=== PATIENT | female | born 1930 | race Caucasian/White ===

== ENCOUNTER 2016-12-11 17:37 | Inpatient (IN) | payer OTHER, MEDICARE ==
[~2016-12-11] VITALS: Ht 157.5 cm; Wt 42.4 kg
[~2016-12-11 17:37] MED LIST: ALBUTEROL SULF8.5 GM IH; CLONIDINE HCL0.1 MG PO; COLACE100 MG PO; Cipro PO; Habitrol,Nicoderm CQ TD; LEVAQUIN500 MG PO; PANTOPRAZOLE SO40 MG PO; PREDNISONE10 MG PO; Protonix PO; SPIRIVA1 INHALATI IH; ZITHROMAX Z-PA250 MG PO
[2016-12-11 18:24] LABS: HEMATOCRIT 43.1 % (36.0-46.0); MCH 29.7 PG (29.0-34.0); MCHC 34.1 G/DL (30.0-36.0); MCV 87.1 FL (83-99); MEAN PLAT.VOLUME 8.7 uM^3 (9.5-12.4); PLATELET COUNT 337 K/uL (156-360); RBC DIS.WIDTH-CV 12.7 % (11.8-14.6); RBC DIS.WIDTH-SD 40.3 % (39-53); RED BLOOD COUNT 4.95 M/uL (3.80-5.20); WHITE BLOOD COUNT 6.6 K/uL (4.1-10.2)
[2016-12-11 18:35] LABS: CHLORIDE 90 mEq/L (99-109); POTASSIUM 3.3 mEq/L (3.7-5.4); SODIUM 128 mEq/L (136-147)
[2016-12-11 18:37] LABS: GLUCOSE 108 mg/dL (70-99)
[2016-12-11 18:38] LABS: ANION GAP 15 MEQ/L (2-14)
[2016-12-11 18:41] LABS: GFR ESTIMATE (CALCULATED) > 59 mL/min/
[2016-12-11 18:42] LABS: UREA NITROGEN (BUN) 10 mg/dL (9-23)
[2016-12-11 18:46] LABS: TROP-I INTERPRETATION NEGATIVE; TROPONIN-I < 0.01 ng/mL (0.0-0.30)
[2016-12-11] MEDS ORDERED: SPIRIVA1 INHALATI IH (20:55)
[2016-12-11] MEDS ORDERED: PROTONIX40 MG PO (20:59)
[2016-12-11] MEDS ORDERED: PAXIL10 MG PO (20:59)
[2016-12-11] MEDS ORDERED: LASIX20 MG PO (21:00)
[2016-12-11 21:20] LABS: ADD MIUA? YES; BILIRUBIN NEGATIVE; BLOOD SMALL; COLOR STRAW ((YELLOW)); GLUCOSE (STRIP) NEGATIVE; KETONES 5; LEUKOCYTES NEGATIVE; NITRITE NEGATIVE; PROTEIN (STRIP) NEGATIVE; SPECIFIC GRAVITY 1.003 (1.000-1.030); UROBILINOGEN 0.2 MG/DL (0.2-1.0)
[2016-12-11 21:25] LABS: BACTERIA NONE SEEN /HPF; EPITHELIAL CELLS RARE /HPF; MUCUS NONE SEEN /LPF; RED BLOOD CELLS 0-5 /HPF (0-5); UCUL ADDED? NO; WHITE BLOOD CELLS 0-5 /HPF (0-5)
[2016-12-12] VITALS (9 sets, daily range): BP systolic 138–197; BP diastolic 82–109
[2016-12-12 02:02] LABS: TROP-I INTERPRETATION NEGATIVE; TROPONIN-I < 0.01 ng/mL (0.0-0.30)
[2016-12-12 07:16] LABS: HEMATOCRIT 41.8 % (36.0-46.0); MCH 28.9 PG (29.0-34.0); MCHC 33.5 G/DL (30.0-36.0); MCV 86.2 FL (83-99); MEAN PLAT.VOLUME 8.6 uM^3 (9.5-12.4); PLATELET COUNT 313 K/uL (156-360); RBC DIS.WIDTH-CV 12.7 % (11.8-14.6); RBC DIS.WIDTH-SD 39.9 % (39-53); RED BLOOD COUNT 4.85 M/uL (3.80-5.20)
[2016-12-12 07:19] LABS: WHITE BLOOD COUNT 4.1 K/uL (4.1-10.2)
[2016-12-12 07:38] LABS: ALKALINE PHOSPHATASE 135 IU/L (3-129); ANION GAP 9 MEQ/L (2-14); CHLORIDE 95 MEQ/L (99-109); GFR ESTIMATE (CALCULATED) > 59 mL/min/; GLUCOSE 123 mg/dL (70-99); SAMPLE HEMOLYSIS CHECK 0; SAMPLE ICTERIC CHECK 0; SAMPLE LIPEMIA CHECK 0; SODIUM 129 MEQ/L (136-147); TOTAL BILIRUBIN 0.6 MG/DL (0.0-1.0); UREA NITROGEN (BUN) 8 mg/dL (9-23)
[2016-12-12 07:43] LABS: TROP-I INTERPRETATION NEGATIVE; TROPONIN-I 0.02 ng/mL (0.0-0.30)
[2016-12-13] VITALS (8 sets, daily range): BP systolic 136–178; BP diastolic 74–96
[2016-12-14 03:25] VITALS: BP 132/78
[2016-12-14 07:26] VITALS: BP 160/82
[2016-12-14 07:26] LABS: HEMATOCRIT 39.4 % (36.0-46.0); MCH 28.8 PG (29.0-34.0); MCV 87.4 FL (83-99); MEAN PLAT.VOLUME 9.3 uM^3 (9.5-12.4); PLATELET COUNT 318 K/uL (156-360); RBC DIS.WIDTH-SD 41.9 % (39-53); RED BLOOD COUNT 4.51 M/uL (3.80-5.20)
[2016-12-14 07:27] LABS: WHITE BLOOD COUNT 9.5 K/uL (4.1-10.2)
[2016-12-14 07:40] LABS: ANION GAP 9 MEQ/L (2-14); CHLORIDE 95 MEQ/L (99-109); GFR ESTIMATE (CALCULATED) > 59 mL/min/; GLUCOSE 101 mg/dL (70-99); SAMPLE HEMOLYSIS CHECK 0; SAMPLE ICTERIC CHECK 0; SAMPLE LIPEMIA CHECK 0; SODIUM 129 MEQ/L (136-147); UREA NITROGEN (BUN) 17 mg/dL (9-23)
[2016-12-14 11:11] VITALS: BP 113/58
[2016-12-14] MEDS ORDERED: PREDNISONE10 M1 PO (16:04)
[2016-12-14] MEDS ORDERED: FUROSEMIDE20 MG PO (16:04)
[2016-12-14 16:18] VITALS: BP 130/77
[2016-12-14 19:36] VITALS: BP 140/80
[2016-12-14 23:31] VITALS: BP 157/80
[2016-12-15 03:54] VITALS: BP 151/82
[2016-12-15 07:00] VITALS: BP 167/85
[2016-12-15 08:44] LABS: ANION GAP 10 MEQ/L (2-14); CHLORIDE 95 MEQ/L (99-109); GFR ESTIMATE (CALCULATED) > 59 mL/min/; GLUCOSE 102 mg/dL (70-99); POTASSIUM 3.9 MEQ/L (3.7-5.4); SAMPLE HEMOLYSIS CHECK 0; SAMPLE ICTERIC CHECK 0; SAMPLE LIPEMIA CHECK 0; SODIUM 132 MEQ/L (136-147); UREA NITROGEN (BUN) 17 mg/dL (9-23)
[2016-12-15 12:13] VITALS: BP 143/78
== END 2016-12-15 16:01 | DRG 191 ==
LOC: EME → EDBD 17:37 → EDOF 21:43 → 2EAST 21:43
PROVIDERS: Emergency Medicine; Hospitalist; Internal Medicine
DX: J44.1 Chronic obstructive pulmonary disease with (acute) exacerbation (principal); E87.1 Hypo-osmolality and hyponatremia; I16.0 Hypertensive urgency; I10 Essential (primary) hypertension; R33.9 Retention of urine, unspecified; R31.9 Hematuria, unspecified; R64 Cachexia; Z68.1 Body mass index [BMI] 19.9 or less, adult; R26.2 Difficulty in walking, not elsewhere classified; R10.84 Generalized abdominal pain; K59.00 Constipation, unspecified; H91.93 Unspecified hearing loss, bilateral; Z86.73 Personal history of transient ischemic attack (TIA), and cerebral infarction without residual deficits; Z87.440 Personal history of urinary (tract) infections; Z85.038 Personal history of other malignant neoplasm of large intestine; Z87.891 Personal history of nicotine dependence; Z60.2 Problems related to living alone; Z63.4 Disappearance and death of family member
CPT/HCPCS: 71020; 74176; 80048; 80053; 81003; 82436; 82533 91; 83605; 83930; 83935; 84133; 84300; 84439; 84443; 84484; 85027; 93005; 94640; 94640 76; 94799; 97530 GP; 99202; 99281; 99285; J0360; J1956; J2920; J7030; J7512

== ENCOUNTER 2017-02-19 20:17 | Inpatient (IN) | payer OTHER, MEDICARE ==
[~2017-02-19] VITALS: Ht 157.5 cm; Wt 40.8 kg
[~2017-02-19 20:17] MED LIST changes: +FUROSEMIDE20 MG PO; +LASIX20 MG PO; +PAXIL10 MG PO; +PREDNISONE10 M1 PO; +PROTONIX40 MG PO
[2017-02-19 21:57] LABS: HEMATOCRIT 36.9 % (36.0-46.0); MCH 30.5 PG (29.0-34.0); MCHC 33.9 G/DL (30.0-36.0); MEAN PLAT.VOLUME 9.4 uM^3 (9.5-12.4); PLATELET COUNT 232 K/uL (156-360); RBC DIS.WIDTH-CV 13.7 % (11.8-14.6); WHITE BLOOD COUNT 5.6 K/uL (4.1-10.2)
[2017-02-19 22:08] LABS: CHLORIDE 92 mEq/L (99-109); POTASSIUM 3.5 mEq/L (3.7-5.4); SODIUM 130 mEq/L (136-147)
[2017-02-19 22:10] LABS: GLUCOSE 102 mg/dL (70-99)
[2017-02-19 22:11] LABS: ANION GAP 9 MEQ/L (2-14)
[2017-02-19 22:12] LABS: TOTAL BILIRUBIN 0.6 mg/dL (0.0-1.0)
[2017-02-19 22:13] LABS: ALKALINE PHOSPHATASE 121 IU/L (3-129)
[2017-02-19 22:14] LABS: GFR ESTIMATE (CALCULATED) > 59 mL/min/
[2017-02-19 22:15] LABS: UREA NITROGEN (BUN) 9 mg/dL (9-23)
[2017-02-19 22:17] LABS: LIPASE 270 U/L (1.0-51.0)
[2017-02-19 23:09] LABS: CREATINE KINASE 38 IU/L (1-294)
[2017-02-20 00:02] LABS: ADD MIUA? YES; BILIRUBIN NEGATIVE; BLOOD SMALL; COLOR YELLOW ((YELLOW)); GLUCOSE (STRIP) NEGATIVE; KETONES NEGATIVE; LEUKOCYTES NEGATIVE; NITRITE NEGATIVE; PROTEIN (STRIP) NEGATIVE; SPECIFIC GRAVITY 1.011 (1.000-1.030); UROBILINOGEN 0.2 MG/DL (0.2-1.0)
[2017-02-20 00:46] LABS: AMORPHOUS PHOSPHATE CRYSTALS 3+; CASTS NONE SEEN /LPF; CRYSTALS PRESENT; EPITHELIAL CELLS 1+ /HPF; MUCUS NONE SEEN /LPF
[2017-02-20 00:47] LABS: BACTERIA 1+ /HPF; UCUL ADDED? NO; WHITE BLOOD CELLS 0-5 /HPF (0-5)
[2017-02-20 05:34] VITALS: BP 171/88
[2017-02-20 08:35] VITALS: BP 183/91
[2017-02-20] MEDS ORDERED: PAXIL10 MG PO (09:46)
[2017-02-20] MEDS ORDERED: SPIRIVA RESPIMAT4 GM AEROSOL (09:51)
[2017-02-20 11:56] VITALS: BP 138/79
[2017-02-20 15:43] VITALS: BP 160/91
[2017-02-20 16:45] LABS: CHLORIDE 95 mEq/L (99-109); POTASSIUM 3.4 mEq/L (3.7-5.4); SODIUM 131 mEq/L (136-147)
[2017-02-20 16:46] LABS: GLUCOSE 115 mg/dL (70-99); PROTHROMBIN TIME 10.2 (9.2-11.2); PTT 27.3 (25-32)
[2017-02-20 16:48] LABS: ANION GAP 8 MEQ/L (2-14)
[2017-02-20 16:50] LABS: GFR ESTIMATE (CALCULATED) > 59 mL/min/
[2017-02-20 16:51] LABS: UREA NITROGEN (BUN) 8 mg/dL (9-23)
[2017-02-20 18:30] VITALS: BP 160/84
[2017-02-21 03:34] VITALS: BP 156/82
[2017-02-21 07:26] LABS: HEMATOCRIT 34.4 % (36.0-46.0); MCH 30.8 PG (29.0-34.0); MCHC 34.3 G/DL (30.0-36.0); MCV 89.8 FL (83-99); MEAN PLAT.VOLUME 9.6 uM^3 (9.5-12.4); PLATELET COUNT 252 K/uL (156-360); RBC DIS.WIDTH-SD 45.5 % (39-53); RED BLOOD COUNT 3.83 M/uL (3.80-5.20); WHITE BLOOD COUNT 3.6 K/uL (4.1-10.2)
[2017-02-21 07:30] VITALS: BP 133/76
[2017-02-21 07:51] LABS: ANION GAP 11 MEQ/L (2-14); CHLORIDE 93 MEQ/L (99-109); GFR ESTIMATE (CALCULATED) > 59 mL/min/; GLUCOSE 135 mg/dL (70-99); LIPASE 119 U/L (1.0-51.0); MAGNESIUM 1.6 mg/dl (1.3-2.7); POTASSIUM 3.7 MEQ/L (3.7-5.4); SAMPLE HEMOLYSIS CHECK 0; SAMPLE ICTERIC CHECK 0; SAMPLE LIPEMIA CHECK 0; SODIUM 131 MEQ/L (136-147); UREA NITROGEN (BUN) 9 mg/dL (9-23)
[2017-02-21 09:43] LABS: TYPE OF FLUID PLEURAL
[2017-02-21 10:23] LABS: BODY FLUID EOSINOPHILS 0 % (0-25); BODY FLUID LDH 95 IU/L; BODY FLUID RBC'S < 1000 /MM^3 (0-100); BODY FLUID WBC'S 582 /MM^3 (0-500); MONONUCLEAR WBC'S 14 %; POLYNUCLEAR WBC'S 86 % (0-25)
[2017-02-21 15:44] VITALS: BP 127/69
[2017-02-21 19:28] VITALS: BP 150/81
[2017-02-21 23:42] VITALS: BP 132/75
[2017-02-22 03:29] VITALS: BP 145/85
[2017-02-22 06:52] LABS: EOSINOPHIL (%) 0 % (0-5); IMMATURE GRANULOCYTE (%) 0.9 % (0.0-0.7); IMMATURE GRANULOCYTE COUNT 0.1 K/uL; LYMPHOCYTE COUNT 0.3 K/uL (1.0-2.8); MCH 31.1 PG (29.0-34.0); MCHC 34.2 G/DL (30.0-36.0); MCV 90.9 FL (83-99); MEAN PLAT.VOLUME 9.6 uM^3 (9.5-12.4); MONOCYTE COUNT 0.5 K/uL (0-0.8); PLATELET COUNT 260 K/uL (156-360); RBC DIS.WIDTH-CV 14.2 % (11.8-14.6); RBC DIS.WIDTH-SD 46.9 % (39-53); RED BLOOD COUNT 3.41 M/uL (3.80-5.20); WHITE BLOOD COUNT 7.9 K/uL (4.1-10.2)
[2017-02-22 07:18] LABS: ANION GAP 11 MEQ/L (2-14); CHLORIDE 93 MEQ/L (99-109); GFR ESTIMATE (CALCULATED) > 59 mL/min/; GLUCOSE 104 mg/dL (70-99); SAMPLE HEMOLYSIS CHECK 0; SAMPLE ICTERIC CHECK 0; SAMPLE LIPEMIA CHECK 0; SODIUM 132 MEQ/L (136-147); UREA NITROGEN (BUN) 13 mg/dL (9-23)
[2017-02-22 07:28] VITALS: BP 173/88
[2017-02-22 11:53] VITALS: BP 152/88
[2017-02-22] MEDS ORDERED: TRAMADOL HCL50 MG PO (12:07)
[2017-02-22] MEDS ORDERED: EXTRA STRENGTH500 M1 PO (12:08)
[2017-02-22 15:46] VITALS: BP 148/88
[2017-02-22 19:28] VITALS: BP 167/81
[2017-02-22 23:21] VITALS: BP 140/68
[2017-02-23 03:25] VITALS: BP 147/85
[2017-02-23 08:04] VITALS: BP 173/81
[2017-02-23 20:11] VITALS: BP 152/86
[2017-02-23 23:52] VITALS: BP 131/81
[2017-02-24 03:59] VITALS: BP 160/92
[2017-02-24 08:04] VITALS: BP 183/92
[2017-02-24 11:11] VITALS: BP 130/62
[2017-02-24 15:23] VITALS: BP 149/67
[2017-02-24 20:13] VITALS: BP 136/78
[2017-02-25] VITALS (7 sets, daily range): BP systolic 121–180; BP diastolic 63–92
[2017-02-26 03:36] VITALS: BP 179/95
[2017-02-26 07:39] VITALS: BP 189/98
[2017-02-26 11:19] VITALS: BP 148/74
[2017-02-26 15:18] VITALS: BP 132/89
[2017-02-26 20:16] VITALS: BP 175/94
[2017-02-27] VITALS (7 sets, daily range): BP systolic 131–168; BP diastolic 70–99
[2017-02-27 08:32] LABS: HEMATOCRIT 36.6 % (36.0-46.0); MCH 30.7 PG (29.0-34.0); MCHC 33.6 G/DL (30.0-36.0); MCV 91.3 FL (83-99); MEAN PLAT.VOLUME 8.9 uM^3 (9.5-12.4); PLATELET COUNT 313 K/uL (156-360); RED BLOOD COUNT 4.01 M/uL (3.80-5.20); WHITE BLOOD COUNT 8.7 K/uL (4.1-10.2)
[2017-02-27 09:00] LABS: ANION GAP 6 MEQ/L (2-14); CHLORIDE 87 MEQ/L (99-109); GFR ESTIMATE (CALCULATED) > 59 mL/min/; GLUCOSE 113 mg/dL (70-99); SAMPLE HEMOLYSIS CHECK 0; SAMPLE ICTERIC CHECK 0; SAMPLE LIPEMIA CHECK 0; UREA NITROGEN (BUN) 17 mg/dL (9-23)
[2017-02-27 09:24] LABS: POTASSIUM 5.6 MEQ/L (3.7-5.4); SODIUM 124 MEQ/L (136-147)
[2017-02-28 03:45] VITALS: BP 144/89
[2017-02-28 07:17] VITALS: BP 165/84
[2017-02-28 11:35] VITALS: BP 140/83
[2017-02-28 15:29] VITALS: BP 140/87
[2017-02-28 20:00] VITALS: BP 188/99
[2017-02-28 22:29] LABS: ANION GAP 7 MEQ/L (2-14); CHLORIDE 92 MEQ/L (99-109); GFR ESTIMATE (CALCULATED) > 59 mL/min/; GLUCOSE 112 mg/dL (70-99); SAMPLE HEMOLYSIS CHECK 0; SAMPLE ICTERIC CHECK 0; SAMPLE LIPEMIA CHECK 0; SODIUM 130 MEQ/L (136-147); UREA NITROGEN (BUN) 20 mg/dL (9-23)
[2017-02-28 22:30] LABS: POTASSIUM 3.9 MEQ/L (3.7-5.4)
[2017-02-28 23:49] VITALS: BP 131/80
[2017-03-01 03:38] VITALS: BP 130/80
[2017-03-01 07:48] VITALS: BP 163/83
[2017-03-01 11:08] VITALS: BP 128/73
[2017-03-01 15:54] VITALS: BP 136/77
[2017-03-01 23:43] VITALS: BP 134/84
[2017-03-02 07:57] VITALS: BP 166/85
[2017-03-02] MEDS ORDERED: PAROXETINE HCL10 MG PO (08:59)
[2017-03-02] MEDS ORDERED: ADVAIR HFA120 INHALA IH (08:59)
[2017-03-02] MEDS ORDERED: AMLODIPINE BES2.5 MG PO (08:59)
[2017-03-02] MEDS ORDERED: ENDOCET 5-3251 EACH PO (08:59)
[2017-03-02 15:28] VITALS: BP 170/86
[2017-03-02] MEDS ORDERED: DECADRON4 MG PO (16:17)
[2017-03-02] MEDS ORDERED: MORPHINE CON20 MG/M1 PO (16:17)
[2017-03-02] MEDS ORDERED: ATIVAN0.5 MG PO (16:17)
[2017-03-02 23:54] VITALS: BP 135/77
[2017-03-03 07:56] VITALS: BP 161/87
[2017-03-03 16:34] VITALS: BP 136/78
[2017-03-03 23:53] VITALS: BP 135/72
[2017-03-04 08:04] VITALS: BP 186/98
[2017-03-04 15:39] VITALS: BP 138/80
[2017-03-05 00:02] VITALS: BP 148/79
[2017-03-05 08:07] VITALS: BP 143/72
[2017-03-05 15:51] VITALS: BP 127/69
== END 2017-03-05 16:34 | disposition hospice, home (50) | DRG 180 ==
LOC: EME 20:17 → EDOF 02-20 03:44 → 5SOUTH 02-20 03:53 → EDOF 02-20 03:53 → 5SOUTH 02-20 05:13
PROVIDERS: Hospitalist; Internal Medicine; Internal Medicine Pulmonary Disease; Nurse Practitioner Adult Health; Physician Assistant Medical
PROC: 0W9B3ZX Drainage of Left Pleural Cavity, Percutaneous Approach, Diagnostic (ICD-10-PCS; principal; 2017-02-21)
DX: C34.92 Malignant neoplasm of unspecified part of left bronchus or lung (principal); K85.90 Acute pancreatitis without necrosis or infection, unspecified; J18.9 Pneumonia, unspecified organism; C25.9 Malignant neoplasm of pancreas, unspecified; N13.30 Unspecified hydronephrosis; E27.8 Other specified disorders of adrenal gland; J44.0 Chronic obstructive pulmonary disease with (acute) lower respiratory infection; J90 Pleural effusion, not elsewhere classified; J98.4 Other disorders of lung; R62.7 Adult failure to thrive; R19.00 Intra-abdominal and pelvic swelling, mass and lump, unspecified site; N39.0 Urinary tract infection, site not specified; J98.19 Other pulmonary collapse; K86.9 Disease of pancreas, unspecified; R32 Unspecified urinary incontinence; D49.2 Neoplasm of unspecified behavior of bone, soft tissue, and skin; E87.1 Hypo-osmolality and hyponatremia; G95.20 Unspecified cord compression; H91.90 Unspecified hearing loss, unspecified ear; I10 Essential (primary) hypertension; J44.1 Chronic obstructive pulmonary disease with (acute) exacerbation; J98.11 Atelectasis; Z68.1 Body mass index [BMI] 19.9 or less, adult; Z74.01 Bed confinement status; Z85.038 Personal history of other malignant neoplasm of large intestine; Z86.73 Personal history of transient ischemic attack (TIA), and cerebral infarction without residual deficits; Z87.891 Personal history of nicotine dependence; R63.0 Anorexia; Z51.5 Encounter for palliative care; E87.6 Hypokalemia; M84.48XD Pathological fracture, other site, subsequent encounter for fracture with routine healing; M51.34 Other intervertebral disc degeneration, thoracic region
CPT/HCPCS: 71010; 71250; 72157; 74177; 77280; 77331; 77336; 77402; 77417; 80048; 80053; 81003; 82550; 82945; 83605; 83615 91; 83690; 83735; 84157; 85025; 85027; 85610; 85730; 87040; 87070; 87205; 88108; 88305; 89051; 94640; 94640 76; 94799; 99281; 99285; J0360; J0696; J1100; J1644; J2270; J2405; J2920; J7030; J7040; J7050

== ENCOUNTER 2017-03-05 14:30 | Inpatient (IN) | payer OTHER ==
[~2017-03-05 14:30] MED LIST changes: +ADVAIR HFA120 INHALA IH; +AMLODIPINE BES2.5 MG PO; +ATIVAN0.5 MG PO; +DECADRON4 MG PO; +ENDOCET 5-3251 EACH PO; +EXTRA STRENGTH500 M1 PO; +MORPHINE CON20 MG/M1 PO; +PAROXETINE HCL10 MG PO; +SPIRIVA RESPIMAT4 GM AEROSOL; +TRAMADOL HCL50 MG PO
[2017-03-06] VITALS: BP 135/75
[2017-03-06 08:00] VITALS: BP 154/85
[2017-03-06 15:56] VITALS: BP 142/83
[2017-03-07 01:29] VITALS: BP 133/71
[2017-03-07 07:45] VITALS: BP 137/84
[2017-03-07] MEDS ORDERED: HYOSCYAMINE0.125 M2 PO (09:22)
[2017-03-07] MEDS ORDERED: MORPHINE SULFAT15 M1 PO (09:22)
== END 2017-03-07 13:15 | disposition hospice, home (50) | DRG 951 ==
LOC: 5EAST 14:30 → 5SOUTH 16:36
DX: Z51.5 Encounter for palliative care (principal); J44.9 Chronic obstructive pulmonary disease, unspecified; Z66 Do not resuscitate; K56.41 Fecal impaction; H91.90 Unspecified hearing loss, unspecified ear; Z79.899 Other long term (current) drug therapy; Z86.73 Personal history of transient ischemic attack (TIA), and cerebral infarction without residual deficits
CPT/HCPCS: 74022; 94640; 94640 76; 94760; 94799; 99202; J1100; J2270; J2405